=== PATIENT | female | born 1975 | race Caucasian/White ===

== ENCOUNTER 2016-12-11 11:19 | Day surgery (SDC) | payer SELFPAY ==
--- NOTE | ~2016-12-11 | OP ---
Record Of [facility] [address] [place]. [address] NAME: JEISON SILVA : 75 STATUS : [facility]#: [id number] AGE: 41 ADM/REG DATE : 12/11/16 MR#: [id number] REPORT SERV DATE: 12/12/16 DICTATED BY: PINKY MACHADO DATE: 12/11/16 REPORT STATUS : Draft TRANSCRIBED BY: CÉSARL DATE: 12/11/16 DATE OF PROCEDURE: 12/11/2016 PREOPERATIVE DIAGNOSIS: Incomplete at 9 weeks. POSTOPERATIVE DIAGNOSIS: Incomplete at 9 weeks. OPERATION: D and C suction curettage. SURGEON: Pinky Machado M.D. ANESTHESIA: General with LMA. PREOPERATIVE ANTIBIOTICS: 1 g Ancef. PREOPERATIVE HEMOGLOBIN: 6.7 and 6.9. BLOOD PRODUCTS: Currently being transfused 2 units of packed red cells. PREOPERATIVE HISTORY: A 41-year-old, white female, 5, para 0 at approximately 9 weeks 2 days. The patient took medications for medical including Cytotec on Thursday and Thursday with heavy onset of bleeding today. Presented to the emergency room with hemoglobin of 6.7 and heavy bleeding. INTRAOPERATIVE COMPLICATIONS: None. ESTIMATED BLOOD LOSS: 250 mL. BLOOD TYPE: Rh negative. PROCEDURE: The patient was taken to the operating room and placed on table in dorsal lithotomy position. Prepped and draped in usual fashion. Examination under anesthesia revealed a uterus approximately 10 to 12-week size. Cervix was already dilated and bleeding was persistent. Sharp curettage was gently performed. A #12 straight curette was used to evacuate a large amount of products of conception. Sharp curettage was again performed as well as repeat suction. Bimanual pressure was then applied for uterine contraction and hemostasis. The patient was transferred to recovery room in stable condition to probably be discharged after completion of second unit of packed red blood cells. Given prescription for Methergine, hemocyte and Anaprox. Instructed to return to office in 2 weeks. JESSE/MYRON Pinky Machado M.D. Record Of [facility] [address] [place]. [address] NAME: JEISON SILVA : 75 STATUS : [facility] PAT#: [id number] AGE: 41 ADM/REG DATE : 12/11/16 MR#: [id number] REPORT SERV DATE: 12/12/16 DICTATED BY: PINKY MACHADO DATE: 12/11/16 REPORT STATUS : Draft TRANSCRIBED BY: MODL DATE: 12/11/16 / [id number] CC: Pinky Machado M.D.
[2016-12-11 10:00] LABS: BASOPHILS 0.1 %; BASOPHILS ABSOLUTE 0.01 10/3/uL (0.0-0.16); EOSINOPHILS 1.1 %; EOSINOPHILS ABSOLUTE 0.14 10/3/uL (0.0-0.53); ER CBC TAT 0 Hrs 03 Mins; IMMATURE GRANULOCYTES 0.2 %; IMMATURE GRANULOCYTES ABSOLUTE 0.03 10/3/uL (0.0-0.11); LYMPHOCYTES 11.9 %; LYMPHOCYTES ABSOLUTE 1.57 10/3/uL (0.67-4.30); MEAN CORPUS HGB CONC 33.7 g/dL (32.0-36.0); MEAN CORPUSCULAR HEMOGLOB 29.9 pg (26.0-34.0); MEAN PLATELET VOLUME 9.5 fL (9.2-13.0); MONOCYTES 4.8 %; MONOCYTES ABSOLUTE 0.63 10/3/uL (0.21-1.20); NEUTROPHILS 81.9 %; NEUTROPHILS ABSOLUTE 10.85 10/3/uL (2.02-8.40); PLATELET COUNT 192 10/3/uL (150-400); WHITE BLOOD CELLS 13.2 10/3/uL (4.5-10.5)
[2016-12-11 10:03] LABS: HEMATOCRIT 19.9 % (36.0-48.0); HEMOGLOBIN 6.7 g/dL (12.0-16.0); MEAN CORPUSCULAR VOLUME 88.8 fL (80-100); RBC DISTRIBUTION WIDTH 19.5 % (12.0-16.0); RED CELL COUNT 2.24 10/6/uL (4.0-5.6)
[2016-12-11 10:08] LABS: INTERNATIONAL NORMAL RATI 1.4 UNITS (-); PARTIAL THROMBO TIME 26.3 SEC (22.5-37.2)
[2016-12-11 10:11] LABS: BUN (BLOOD UREA NITROGEN) 7 MG/DL (6-23); CALCIUM, SERUM 8.1 MG/DL (8.5-10.4); CHLORIDE, SERUM 108 MMOL/L (96-112); CO2 (CARBON DIOXIDE) 27 MMOL/L (24-34); CREATININE 0.55 MG/DL (0.55-1.02); GFR AFRICAN AMERICAN 135 ML/MIN (>=60); GFR NON AFRICAN AMERICAN 117 ML/MIN (>=60); GLUCOSE, SERUM 130 MG/DL (60-99); POTASSIUM, SERUM 3.1 MMOL/L (3.5-5.3); SODIUM, SERUM 142 MMOL/L (135-148)
[2016-12-11 10:14] LABS: MANUAL DIFF NO %
[~2016-12-11 11:19] MED LIST: KLONO5 PO; LAMICTAL150 MG PO; SEROQUEL200 MG PO; [UNRECOGNIZED DRUG - REMARK] PO
[2016-12-11 13:09] LABS: HEMATOCRIT 20.6 % (36.0-48.0); HEMOGLOBIN 6.9 g/dL (12.0-16.0)
[2016-12-11 16:58] LABS: HEMOGLOBIN 7.2 g/dL (12.0-16.0)
[2016-12-11 16:59] LABS: HEMATOCRIT 20.5 % (36.0-48.0)
== END 2016-12-11 19:32 | disposition home or self-care (01) ==
LOC: ER 11:19 → SDC 11:28
PROVIDERS: Obstetrics & Gynecology; Physician Assistant
PROC: 10A07ZZ Abortion of Products of Conception, Via Natural or Artificial Opening (ICD-10-PCS; principal; 2016-12-11 12:45)
DX: O03.4 Incomplete spontaneous abortion without complication (principal); F17.210 Nicotine dependence, cigarettes, uncomplicated; F31.9 Bipolar disorder, unspecified; F41.9 Anxiety disorder, unspecified
CPT/HCPCS: 36415; 36430; 76830; 76856; 80048; 85014; 85018; 85025; 85610; 85730; 86850; 86900; 86901; 86920; 88305; 96374; 96375; 96376; 99285; A9270-GY; J0690; J1885; J2250; J2370; J2405; J2590; J3010; P9016; P9045